=== PATIENT | female | born 1950 | race Hispanic/Latino ===

== ENCOUNTER 2021-07-27 19:00 | Outpatient (CLI) | payer MEDICARE | END 2021-07-27 19:01 | disposition home or self-care (01) | LOC: SLEEPLAB 19:00 | PROVIDERS: ATTEND Internal Medicine Critical Care Medicine | DX: G47.33 Obstructive sleep apnea (adult) (pediatric) (principal); I48.91 Unspecified atrial fibrillation; E11.9 Type 2 diabetes mellitus without complications; I11.0 Hypertensive heart disease with heart failure; I50.9 Heart failure, unspecified; K21.9 Gastro-esophageal reflux disease without esophagitis; G47.00 Insomnia, unspecified; G47.10 Hypersomnia, unspecified; R09.02 Hypoxemia; I49.3 Ventricular premature depolarization | CPT/HCPCS: 95811 ==

== ENCOUNTER 2022-06-10 12:29 | Outpatient (CLI) | payer MEDICARE | END 2022-06-10 12:30 | disposition home or self-care (01) | LOC: EEG 12:29 | PROVIDERS: ATTEND Psychiatry & Neurology Neurology | DX: I63.9 Cerebral infarction, unspecified (principal) | CPT/HCPCS: 95816; 95957 ==

== ENCOUNTER 2022-07-02 00:22 | Inpatient (IN) | payer MEDICARE ==
[2022-07-02 04:23] VITALS: BMI 33.6
[2022-07-02] MEDS ORDERED: Ondansetron PF 4 MG/2 ML Vial IVP PRN (09:25)
[2022-07-02] MEDS ORDERED: Ondansetron ODT 4 MG TAB PO PRN (09:25)
[2022-07-02] MEDS: cefTRIAXone\\ROCEPHIN 1 GM in Sodium Chloride 0.9% 100 ML IVPB SCH (10:55)
[2022-07-02] MEDS: Acetaminophen 325 MG TAB PO PRN ×2 (10:55→20:54)
[2022-07-02] MEDS: Azithromycin 500 MG in Sodium Chloride 0.9% 250 ML 250 ML IVPB SCH (12:12)
[2022-07-02 13:02] LABS: Digoxin 0.69 ng/mL (0.8-2.0)
[2022-07-02] MEDS: Potassium Chloride 20 MEQ TAB PO SCH (20:55)
[2022-07-02] MEDS: Atorvastatin Calcium 40 MG TAB PO SCH (20:56)
[2022-07-02] MEDS: Magnesium Oxide 400 MG TAB PO SCH (20:56)
[2022-07-02] MEDS: Apixaban 5 MG TAB PO SCH (20:56)
[2022-07-03 05:02] LABS: Anion Gap 17 mmol/L (10-20); BUN (Urea Nitrogen) 13 mg/dL (9.8-20.1); Calc. Creatinine Clearance 75 mL/min (70-130); Calcium 8.9 mg/dL (7.8-10.44); Carbon Dioxide 22 mmol/L (23-31); Chloride 105 mmol/L (98-107); Estimated GFR 73; Glucose 116 mg/dL (83-110); Potassium 4.7 mmol/L (3.5-5.1); Sodium 139 mmol/L (136-145)
[2022-07-03 06:54] LABS: #Eosinphils 0.2 thou/uL (0.0-0.7); #Lymphocytes 2.2 thou/uL (1.20-3.40); #Monocytes 1.3 thou/uL (0.11-0.59); #Neutrophils 5.1 thou/uL (1.40-6.50); %Basophils 0.2 % (0.0-1.0); %Eosinophils 1.9 % (0.0-10.0); %Lymphocytes 25.5 % (21.0-51.0); %Monocytes 14.3 % (0.0-10.0); %Neutrophils 58.1 % (42.0-75.0); Hemoglobin 12.5 g/dL (12.0-16.0); Mean Corpuscular HGB CONC 31.4 g/dL (32.0-36.0); Mean Corpuscular Hemoglobin 28.8 pg (27.0-31.0); Mean Corpuscular Volume 91.6 fL (78.0-98.0); Mean Platelet Volume 6.9 fL (7.4-10.4); Platelet Count 259 thou/uL (130-400); RBC Distribution Width 14.1 % (11.5-14.5); Red Blood Cell (RBC) Count 4.35 mill/uL (4.20-5.40); White Blood Cell (WBC) Count 8.7 thou/uL (4.8-10.8)
[2022-07-03] MEDS ORDERED: Digoxin 0.125 MG TAB PO SCH ×2 (09:00→10:30)
[2022-07-03] MEDS: DULoxetine 60 MG CAP PO SCH (09:36)
[2022-07-03] MEDS: Magnesium Oxide 400 MG TAB PO SCH ×2 (09:36→20:56)
[2022-07-03] MEDS: Furosemide 40 MG/4 ML VIAL SLOW IVP SCH (09:37)
[2022-07-03] MEDS: Apixaban 5 MG TAB PO SCH ×2 (09:37→20:55)
[2022-07-03] MEDS: Potassium Chloride 20 MEQ TAB PO SCH ×2 (09:37→20:56)
[2022-07-03] MEDS: cefTRIAXone\\ROCEPHIN 1 GM in Sodium Chloride 0.9% 100 ML IVPB SCH (11:27)
[2022-07-03] MEDS: Azithromycin 500 MG in Sodium Chloride 0.9% 250 ML 250 ML IVPB SCH (12:27)
[2022-07-03] MEDS: Acetaminophen 325 MG TAB PO PRN (20:56)
[2022-07-03] MEDS: Atorvastatin Calcium 40 MG TAB PO SCH (20:56)
[2022-07-04 05:04] LABS: #Eosinphils 0.2 thou/uL (0.0-0.7); #Lymphocytes 2.7 thou/uL (1.20-3.40); #Neutrophils 4.1 thou/uL (1.40-6.50); %Basophils 0.6 % (0.0-1.0); %Eosinophils 2.8 % (0.0-10.0); %Lymphocytes 33.8 % (21.0-51.0); %Monocytes 11.7 % (0.0-10.0); %Neutrophils 51.1 % (42.0-75.0); Hemoglobin 11.7 g/dL (12.0-16.0); Mean Corpuscular HGB CONC 31.8 g/dL (32.0-36.0); Mean Corpuscular Hemoglobin 29.2 pg (27.0-31.0); Mean Platelet Volume 7.2 fL (7.4-10.4); Platelet Count 254 thou/uL (130-400); RBC Distribution Width 14.1 % (11.5-14.5); Red Blood Cell (RBC) Count 3.99 mill/uL (4.20-5.40); White Blood Cell (WBC) Count 8.1 thou/uL (4.8-10.8)
[2022-07-04 05:18] LABS: Anion Gap 14 mmol/L (10-20); BUN (Urea Nitrogen) 13 mg/dL (9.8-20.1); Calc. Creatinine Clearance 76 mL/min (70-130); Calcium 8.8 mg/dL (7.8-10.44); Carbon Dioxide 28 mmol/L (23-31); Chloride 104 mmol/L (98-107); Estimated GFR 75; Glucose 110 mg/dL (83-110); Sodium 142 mmol/L (136-145)
[2022-07-04] MEDS: Furosemide 40 MG/4 ML VIAL SLOW IVP SCH (09:26)
[2022-07-04] MEDS: Magnesium Oxide 400 MG TAB PO SCH (09:26)
[2022-07-04] MEDS: DULoxetine 60 MG CAP PO SCH (09:26)
[2022-07-04] MEDS: Apixaban 5 MG TAB PO SCH (09:26)
[2022-07-04] MEDS: Potassium Chloride 20 MEQ TAB PO SCH (09:26)
[2022-07-04 12:42] VITALS: TEMP 97.3
[2022-07-04] MEDS: cefTRIAXone\\ROCEPHIN 1 GM in Sodium Chloride 0.9% 100 ML IVPB SCH (12:44)
[2022-07-04 13:34] VITALS: BP 130/65
[2022-07-04] MEDS: Azithromycin 500 MG in Sodium Chloride 0.9% 250 ML 250 ML IVPB SCH (14:10)
== END 2022-07-04 15:10 | disposition home or self-care (01) | DRG 189 ==
LOC: 2NO 01:04
PROVIDERS: ADMIT Family Medicine; ATTEND Family Medicine
DX: J96.01 Acute respiratory failure with hypoxia (principal); R65.10 Systemic inflammatory response syndrome (SIRS) of non-infectious origin without acute organ dysfunction; I48.91 Unspecified atrial fibrillation; Z60.2 Problems related to living alone; Z66 Do not resuscitate; I50.9 Heart failure, unspecified; E11.9 Type 2 diabetes mellitus without complications; Z79.01 Long term (current) use of anticoagulants; Z87.01 Personal history of pneumonia (recurrent); Z87.440 Personal history of urinary (tract) infections; Z88.8 Allergy status to other drugs, medicaments and biological substances; Z79.899 Other long term (current) drug therapy; I69.328 Other speech and language deficits following cerebral infarction; Z90.49 Acquired absence of other specified parts of digestive tract; Z90.710 Acquired absence of both cervix and uterus; Z98.890 Other specified postprocedural states; Z87.891 Personal history of nicotine dependence; Z99.81 Dependence on supplemental oxygen
CPT/HCPCS: 36415; 36416; 80048; 80162; 85025; 87086; 87633; 87798; 93798; J0456; J0696; J1940; J3490; J7050

== ENCOUNTER 2022-07-09 09:25 | Outpatient (CLI) | payer MEDICARE | END 2022-07-09 09:26 | disposition home or self-care (01) | LOC: RAD 09:25 | PROVIDERS: ATTEND Internal Medicine Critical Care Medicine | DX: R06.09 Other forms of dyspnea (principal) | CPT/HCPCS: 71046 ==

== ENCOUNTER 2023-02-11 16:13 | Emergency (ER) | payer MEDICARE ==
[2023-02-11] MEDS ORDERED: HYDROcodone/Acetaminophen 5/325 mg Tablet ONE (16:50)
== END 2023-02-11 19:06 | disposition home or self-care (01) ==
LOC: ERS 16:13
DX: S32.010A Wedge compression fracture of first lumbar vertebra, initial encounter for closed fracture (principal); I11.0 Hypertensive heart disease with heart failure; I50.9 Heart failure, unspecified; E11.9 Type 2 diabetes mellitus without complications; W18.30XA Fall on same level, unspecified, initial encounter; Z79.899 Other long term (current) drug therapy; Z79.01 Long term (current) use of anticoagulants
CPT/HCPCS: 72128; 72131

== ENCOUNTER 2023-03-11 13:33 | Outpatient (CLI) | payer MEDICARE | END 2023-03-11 13:34 | disposition home or self-care (01) | LOC: TBSIIMAG 13:33 | PROVIDERS: ATTEND Physician Assistant | DX: S32.010A Wedge compression fracture of first lumbar vertebra, initial encounter for closed fracture (principal) | CPT/HCPCS: 72100 ==